=== PATIENT | male | born 1965 | race Caucasian/White ===

== ENCOUNTER 2025-07-27 03:05 | Emergency (ER) | payer OTHER, SELFPAY ==
[2025-07-27] VITALS (51 sets, daily range): BP systolic 104–221; BP diastolic 82–122; PULSE 71–99; RESP 15–24; TEMP 36.4; O2SAT 93–100
--- NOTE | ~2025-07-27 | XR_ITS ---
Examination: XR chest 1V portable Clinical History: LEFT SIDE CP Comparison: None Technique: Portable AP Findings: Heart size normal. Mild emphysema and hyperinflation. Mild asymmetrical markings right lung likely soft tissue artifact. No acute bony abnormality. IMPRESSION: 1. No definite acute cardiopulmonary findings given portable technique. Reviewed, dictated and finalized at location R. L CLEANER TUBE
--- NOTE | ~2025-07-27 | CT_ITS ---
EXAMINATION: CTA chest PE protocol DATE: 07/27/2025 04:06 INDICATION: Chest pain. TECHNIQUE: Computed tomography angiography (CTA) of the chest was performed with 100 mL Omnipaque-350 intravenous contrast timed to evaluate the pulmonary arteries. Coronal maximum intensity projection 3D-reconstructions were created by the technologist. Automated exposure control and iterative reconstruction technique were employed. The dose-length product was 229.71 mGy-cm. COMPARISON: None. FINDINGS: There is mild emphysema. There is mild atelectasis bilaterally. A calcified left lung nodule and calcified left hilar lymph nodes are consistent with old granulomatous disease. No pleural effusion. The heart size is normal. No pericardial effusion. There is an intramural hematoma of aorta distal to the arch vessels with maximum thickness of 2.4 cm. There is no pulmonary embolus. There is severe cervical spondylosis and mild thoracic spondylosis. There is mild chronic height loss of multiple vertebral bodies. IMPRESSION: 1. Intramural hematoma of the aorta distal to the arch vessels. 2. No pulmonary embolus. 3. Mild emphysema. Reviewed, dictated and finalized at location E. WIRER
--- NOTE | 2025-07-27 03:06 | ECG_ITS ---
Test Date: 2025-07-27 03:10:35 Measurements Intervals [place] Rate: 82 P: 42 MT: 132 QRS: 59 QRSD: 89 T: 91 QT: 370 QTc: 434 Interpretive Statements SINUS RHYTHM NONSPECIFIC T-WAVE ABNORMALITIES No previous ECG available for comparison Electronically Signed On 07-27-2025 08:37:07 OIL WELL PERFORATOR OPERATOR by Alex Razo M.D.
--- NOTE | 2025-07-27 03:06 | ED.CHESTPAIN ---
HPI - Chest Pain General Chief Complaint: Chest Pain Stated Complaint: chest pain Time Seen by Provider: 07/27/25 03:06 Source: patient Mode of arrival: ambulatory Limitations: no limitations History of Present Illness HPI narrative: Patient is a 59-year-old male with chest pain starting yesterday that radiated to his left arm with tingling and numbness and to his back. That went away somewhat during the day and now he laid down for bed last night and the pain came back in a similar fashion. Patient has baseline shortness of breath and edema and those are not worse than normal. He has history of asthma which is not a bother at this time according to the patient. Family history is showing his father had CHF and and mother had a stroke. EMS brought the patient to the ER with hypertensive urgency and abnormal EKG but not STEMI. Chest pain is right over the left chest. Pain got better after giving labetalol. MD complaint: chest pain Pertinent past history: asthma and other (Hypertension) Onset (ago): day(s) (2) Timing of current episode: episodic, daily and still present Prior episodes: No Onset: during rest Pain location: substernal and left chest Pain radiation: left arm and back Severity: moderate Pain scale (0-10): 5 Quality: heaviness Relieving factors: other (Labetalol made it get better given in the emergency room) Exacerbating factors: nothing Context: non compliance with medication (Patient has been on a beta-namrata but he had stop that medicine on his own device/noncompliance) Associated symptoms: dyspnea (Baseline) and leg swelling (Baseline) Treatment prior to arrival: aspirin (324 mg given by EMS) Risk Factors Coronary artery disease risk factors: smoking history and hypertension Thoracic aortic dissection risk factors: longstanding hypertension Related Data Allergies Allergy/AdvReac Type Severity Reaction Status Date / Time tramadol Allergy Intermediate Unknown Verified 07/27/25 03:25 Review of Systems Review of Systems: All systems reviewed & are unremarkable except as noted in HPI and below Constitutional: Constitutional: Reports no additional constitutional complaints Eyes: Eyes: Reports no additional eye complaints ENT: Reports system reviewed and no additional complaints, except as documented Cardiovascular: Cardiovascular: Reports no additional cardiovascular complaints Respiratory: Respiratory: Reports no additional respiratory complaints Gastrointestinal: Gastrointestinal: Reports no additional gastrointestinal complaints Genitourinary: Genitourinary: Reports no additional male genitourinary complaints Musculoskeletal: Musculoskeletal: Reports no additional musculoskeletal complaints Integumentary/Breasts: Skin/Breast: Reports system reviewed and no additional complaints, except as docu Neurologic: Reports system reviewed and no additional complaints, except as documented Psychiatric: Psychiatric: Reports no additional psychiatric complaints Endocrine: Endocrine: Reports no additional endocrine complaints Hematologic/Lymphatic: Hematologic/Lymphatic: Reports no additional hematologic/lymphatic complaints Allergic/Immunologic: Allergic/Immunologic: Reports no additional allergic/immunologic complaints [facility] Past Medical History Medical History (Updated 07/27/25 @ 05:22 by Winston Fagan MD) Nicotine dependence Hypertension Asthma Surgical History Surgical History No history of previous surgery Family History Family History Sister Hypertension Father Hypertension Mother Family history of chronic obstructive pulmonary disease Hypertension Social History Social History Smoking packs per day: 1 Smoking cigarettes per day: 20.0 Smoking status: Current every day smoker Tobacco type: cigarettes Alcohol intake: never Substance use: never Substance use type: does not use Living arrangements: with family Additional living arrangements comments: Single Occupation/Education: unemployed Exam Const: General: no acute distress Nutritional Appearance: well nourished Orientation/consciousness: patient oriented x3 Limitations: no limitations HENMT: Head: normal to inspection Ears: external ears normal Face/Nose/Sinus: Normal external nose present Eyes: Conjunctivae: conjunctivae normal Pupils: Equal, round and reactive pupils present EOM: EOMs intact bilaterally Neck: Neck: normal visual inspection Chest: Chest palpation & inspection: normal inspection of the chest Resp: Effort & Inspection: normal respiratory effort and not labored Auscultation: clear to auscultation bilaterally and no crackles Cardio: Rate: regular rate Rhythm: regular rhythm Heart sounds: no murmurs GI: Inspection: non-distended GI Palp: Yes Soft to palpation and No Tenderness to palpation present (GI) Auscultation: normal bowel sounds : General: Yes bladder normal to palpation Back/Spine/Pelvis: Back: no CVA tenderness Skin: General skin exam: normal color Rashes: no rashes Wounds: no wounds Neuro: General: patient oriented x3, moves all extremities and no meningeal signs Extrem: General: normal to inspection, no clubbing, cyanosis or edema and no pedal edema Psych: Mental Status: mental status grossly normal Affect: normal affect Attitude: cooperative Course Vital Signs Vital signs: Vital Signs Pulse Rate 96 07/27/25 03:09 Blood Pressure 221/122 H 07/27/25 03:09 Pulse Oximetry 100 07/27/25 03:09 Oxygen Delivery Room Air 07/27/25 03:09 Temperature 36.4 C L 07/27/25 03:27 Pulse Rate 80 07/27/25 05:08 Respiratory Rate 20 07/27/25 03:46 Blood Pressure 167/119 H 07/27/25 05:08 Pulse Oximetry 99 07/27/25 04:46 Oxygen Delivery Room Air 07/27/25 03:27 MDM - Chest Pain MDM Narrative Medical decision making narrative: Patient is a 59-year-old male with chest pain that started yesterday and it is episodic. We will do a cardiopulmonary workup at this time. Lab Data Attestation: I reviewed the patient's lab results. 07/27/25 03:15 07/27/25 03:15 Labs: Lab Results 07/27/25 Range/Units 03:15 WBC 9.8 (4.8-10.8) K/mm3 RBC 4.27 L (4.70-6.10) M/mm3 Hgb 13.7 L (14.0-18.0) g/dL Hct 41.4 (40.0-54.0) % MCV 97.0 (78.0-102.0) fL MCH 32.1 H (27.0-31.0) pg MCHC 33.1 (32-36) g/dL RDW 13.5 (11.6-14.4) % Plt Count 178 (150-420) K/mm3 MPV 10.3 (8.7-11.0) fl Immature Gran % (Auto) 0.3 H (0.0-0.0) % Neut % (Auto) 58.3 (50.0-70.0) % Lymph % (Auto) 18.5 (18.0-42.0) % Mcmullen % (Auto) 14.7 H (2.0-11.0) % Eos % (Auto) 7.3 H (1.0-6.0) % Baso % (Auto) 0.9 (0.0-1.0) % Lymph # (Auto) 1.82 (1.10-4.50) K/mm3 Mcmullen # (Auto) 1.44 H (0.10-0.90) K/mm3 Eos # (Auto) 0.72 H (0.02-0.50) K/mm3 Baso # (Auto) 0.09 (0.00-0.10) K/mm3 Abs Immat Gran (auto) 0.03 H (0.00-0.00) K/mm3 Absolute Neuts (auto) 5.72 (1.70-7.20) K/mm3 Absolute Nucleated RBC 0.00 (0.00-0.00) K/mm3 Nucleated RBC % 0.0 (0-0.0) % PT 10.0 (9.50-12.1) Seconds INR 0.9 APTT 27.4 (23.9-30.70) Sec D-Dimer 1.16 H (0.19-0.50) mg/L Sodium 144 (137-145) mmol/L Potassium 4.1 (3.4-5.0) mmol/L Chloride 107 (98-107) mmol/L Carbon Dioxide 31 H (22-30) mmol/L Anion Gap 6 (4-12) mmol/L BUN 19 (9-20) mg/dL Creatinine 1.56 H (0.7-1.3) mg/dL Estim Creat Clear Calc 45 ml/min Estimated GFR 46 L (59 - ) Glucose 94 (65-110) mg/dL Calculated Osmolality 300 H (285-295) mOsm/kg Lactic Acid 0.8 (0.7-2.0) mmol/L Calcium 9.1 (8.4-10.2) mg/dL Total Bilirubin 0.2 (0.2-1.3) mg/dL AST 31 (17-59) U/L ALT 18 (6-50) U/L Alkaline Phosphatase 112 (38-126) U/L Troponin I < 0.012 (0.000-0.034) ng/mL NT-Pro-B Natriuret Pep 685 H (19.9-100) pg/mL Total Protein 6.9 (6.3-8.2) g/dL Albumin 4.1 (3.5-5.1) g/dL Lipase 77 (23-300) U/L Procalcitonin 0.1 ng/mL Imaging Data Attestation: I personally reviewed and interpreted this imaging study as follows: Radiologist's impression: Chest x-ray shows right lower lobe subtle infection of atypical bacteria and a normal appearing thoracic aorta CTA of the chest shows 2.4 cm thick intramural hematoma of the descending aortic arch with increased density concerning for acute component and a mass effect on the left subclavian artery ECG Data EKG #1: Attestation: I personally reviewed and interpreted this ECG as follows: ECG completion date: 07/27/25 ECG completion time: 03:50 Prior ECG tracings: available for review (No acute changes from prior EKGs) Interpretation: Criteria for LVH seen EKG Interpretation: normal rate, sinus rhythm, no ectopy, non-specific ST changes, normal QRS, normal QT and NL axis EKG #2: Attestation: I personally reviewed and interpreted this ECG as follows: ECG completion date: 07/27/25 ECG completion time: 03:53 Prior ECG tracings: available for review (No acute changes from prior EKGs) Interpretation: LVH pattern EKG Interpretation: normal rate, sinus rhythm, no ectopy, non-specific ST changes, normal QRS, normal QT and NL axis Critical Care Time Critical Care Time Critical Care Time: Yes Total Critical Care Time: 60 Discharge Plan Discharge Clinical Impression: Aortic dissection Qualifiers: Aortic location: thoracic aorta Thoracic aorta location: aortic arch Qualified Code(s): I71.011 - Dissection of aortic arch Patient Disposition: Acute Care Hospital Condition: Serious Patient Language: Maltese Prescriptions: No Action albuterol sulfate [Ventolin HFA] 90 mcg/actuation HFA aerosol inhaler 1 puff INHALATION Q4H PRN (Reason: shortness of breath or wheezing) Qty: 8.5 6RF lisinopril-hydrochlorothiazide 20-25 mg tablet 1 tablet PO DAILY Qty: 30 0RF metoprolol tartrate 50 mg tablet 50 mg PO Q12H Qty: 60 0RF Rx Instructions: Needs appt before next refill Follow-up/Referrals: Kb Gonsalez MD [Primary Care Provider, Internal Medicine] Time of Disposition: 05:22
--- NOTE | 2025-07-27 03:18 | ECG_ITS ---
Test Date: 2025-07-27 03:20:13 Measurements Intervals [place] Rate: 86 P: 24 LA: 134 QRS: 57 QRSD: 87 T: 86 QT: 373 QTc: 446 Interpretive Statements SINUS RHYTHM NONSPECIFIC T-WAVE ABNORMALITY Compared to ECG 07/27/2025 03:10:35 NO SIGNIFICANT CHANGES Electronically Signed On 07-27-2025 08:37:31 TRENCH PIPE LAYER HELPER by Alex Razo M.D.
[2025-07-27 03:30] LABS: Hematocrit 41.4 % (40.0-54.0); Hemoglobin 13.7 g/dL (14.0-18.0); Immature Granulocyte Percent A 0.3 % (0.0-0.0); Lymphocytes Absolute Auto 1.82 K/mm3 (1.10-4.50); Mean Corpuscular HGB Conc 33.1 g/dL (32-36); Mean Corpuscular Hemoglobin 32.1 pg (27.0-31.0); Mean Corpuscular Volume 97.0 fL (78.0-102.0); Nucleated Red Blood Cells Absolute Auto 0.00 K/mm3 (0.00-0.00); Nucleated Red Blood Cells Perc 0.0 % (0-0.0); Platelet Count Result 178 K/mm3 (150-420); Red Blood Count 4.27 M/mm3 (4.70-6.10); White Blood Count 9.8 K/mm3 (4.8-10.8)
[2025-07-27 03:32] LABS: Alanine Aminotransferase 18 U/L (6-50); Albumin Level 4.1 g/dL (3.5-5.1); Alkaline Phosphatase 112 U/L (38-126); Anion Gap 6 mmol/L (4-12); Aspartate Amino Transferase 31 U/L (17-59); Bilirubin,Total 0.2 mg/dL (0.2-1.3); Blood Urea Nitrogen 19 mg/dL (9-20); Calcium 9.1 mg/dL (8.4-10.2); Carbon Dioxide 31 mmol/L (22-30); Chloride 107 mmol/L (98-107); Estimated CRCL calculation 45 ml/min; Estimated Glomerular Filt Rate 46; Glucose 94 mg/dL (65-110); Osmolality Calculated 300 mOsm/kg (285-295); Potassium 4.1 mmol/L (3.4-5.0); Sodium 144 mmol/L (137-145); Total Protein 6.9 g/dL (6.3-8.2)
[2025-07-27 03:37] LABS: INR 0.9; Partial Thromboplastin Time 27.4 Sec (23.9-30.70); Prothrombin Time 10.0 Seconds (9.50-12.1)
[2025-07-27 03:40] LABS: Lipase 77 U/L (23-300)
[2025-07-27 03:45] LABS: NT Pro B Type Natriuretic Pept 685 pg/mL (19.9-100); Troponin I < 0.012 ng/mL (0.000-0.034)
[2025-07-27 04:17] LABS: Procalcitonin 0.1 ng/mL
[2025-07-27] MEDS: HYDROmorphone HCL INJ (*CRX) 2 MG/ML VIAL 1 MG IV PUSH (06:11)
--- NOTE | 2025-07-27 06:26 | PC.NURSE ---
pt placed on 2 lpm nasal cannula at this time as O2 sat's decreased to 94% on RA as patient medicated for pain, see MAR.
--- NOTE | 2025-07-30 13:12 | PC.NURSE ---
PRELIMINARY BLOOD CULTURE; NO GROWTH IN 24 HOURS.
--- NOTE | 2025-07-31 12:58 | PC.NURSE ---
preliminary blood cultures x2 reviewed. no growth in 48 hours
--- NOTE | 2025-08-03 14:21 | PC.NURSE ---
blood culture, final, no growth
== END 2025-07-27 06:58 | disposition short-term general hospital (02) ==
PROVIDERS: Emergency Provider Emergency Medicine; PCP Family Medicine
DX: I71.011 Dissection of aortic arch (principal); I10 Essential (primary) hypertension; F17.210 Nicotine dependence, cigarettes, uncomplicated
CPT/HCPCS: 36415; 71045; 71275; 80053; 83605; 83690; 83880; 84145; 84484; 85025; 85380; 85610; 85730; 93005; 96365; 96375; 96376; 99291; J1171; J7060; Q9967

== ENCOUNTER 2025-08-17 13:46 | Outpatient (CLI) | payer OTHER, SELFPAY ==
--- NOTE | ~2025-08-17 | US_ITS ---
EXAMINATION: US renal BI, 08/17/2025 13:52 CASTING CARRIER HISTORY: N28.9 - Disorder of kidney and ureter, unspecified Comparison: None Technique: Jaffe-scale and color Doppler images were obtained. Findings: KIDNEYS: The renal cortices are intact with no solid masses or calculi, no hydronephrosis. Right Kidney: Right kidney 10.3 x 6.2 x 5.1 cm, superior pole simple cyst 1.8 x 1.8 cm. Left Kidney: Left kidney 10.5 x 4.8 x 5.4 cm, mid pole simple cyst 1.6 x 1.7 cm. Bladder: There is debris noted within the bladder, no gross bladder wall thickening. . Impression: 1. Bilateral simple appearing renal cysts. 2. Correlate for underlying cystitis Reviewed, dictated and finalized at location P. ING CARRIER Impression: 1. Bilateral simple appearing renal cysts. 2. Correlate for underlying cystitis
== END 2025-08-17 13:47 | disposition home or self-care (01) ==
PROVIDERS: PCP Nurse Practitioner Family; Visit Provider Nurse Practitioner Family
DX: N28.9 Disorder of kidney and ureter, unspecified (principal); N32.89 Other specified disorders of bladder; N28.1 Cyst of kidney, acquired
CPT/HCPCS: 76770

== ENCOUNTER 2025-08-21 15:52 | Outpatient (NON) | payer OTHER, SELFPAY ==
[2025-08-21 16:15] LABS: Add Urine Microscopic? YES; Appearance Urine Clear (Clear); Glucose Urine UA Negative (Negative); Leukocyte Esterase Ur 2+ LEU/UL (Negative); Nitrate Urine Positive (Negative); Specific Grav Ur 1.020 (1.010-1.020)
--- OUTSIDE RECORDS SUMMARY | 2025-08-21 18:05 | XMS_ITS | Clinical Summary ---
Author Organization [facility] Address [facility] [place] [address] Care Team Providers Care Crm Marketing Analyst Name Role Phone Michelle Lopez [facility] Primary Care Provider [phone] Allergies No known active allergies Medications lisinopril (PRINIVIL) 10 MG tablet Take 1 tablet (10 mg total) by mouth daily. Active losartan (COZAAR) 25 MG tablet Take 4 tablets (100 mg total) by mouth daily for 30 days. 30 tablet 07/29/2025 5 Active carvedilol (COREG) 3.125 MG tablet Take 16 tablets (50 mg total) by mouth 2 (two) times daily for 30 days. 960 tablet 07/29/2025 5 Active amLODIPine (NORVASC) 2.5 MG tablet Take 4 tablets (10 mg total) by mouth daily. 30 tablet 07/29/2025 Active Active Problems Problem Noted Date Diagnosed Date Aortic dissection 07/27/2025 Encounters Date Type Department Care Team Description 08/07/2025 Orders Only [facility] [address] [place] [address] Jonn Valle MD 07/27/2025 7:56 AM SEARCH ENGINE OPTIMIZATION STRATEGIST - 07/29/2025 11:30 AM [facility] Hospital Encounter [facility] Cardiovascular ICU [address] [place] [address] Neri Higgins MD Subramaniyam, Rajamurugan R, MD Discharge Disposition: Home or Self Care (Routine Discharge) 07/27/2025 Travel from Last 3 Months Social History Tobacco Use Types Packs/Day Years Used Date Smoking Tobacco: Every Day Cigarettes Started: 1979 Smokeless Tobacco: Never Tobacco Cessation:Ready to Q uit: Not Asked; Counseling Given: Not Answered Humiliation, Afraid, Rape, and Kick questionnair e Answer Date Recorded Within the last year, have y ou been afraid of your partner or ex-partner? No 07/27/2025 Within the last year, have y ou been humiliated or emotionally abused in other ways by your partner or ex-partner? No Within the last year, have y ou been kicked, hit, slapped, or otherwise physically hurt by your partner or ex-partner? No 07/27/2025 Within the last year, have y ou been raped or forced to have any kind of sexual activity by your partner or ex-partner? No 07/27/2025 Overall Financial Resource Strain (CARDIA) Answe r Date Recorded How hard is it for you to pa y for the very basics like food, housing, medical care, and heating? Not hard at all 07/27/2025 Hunger Vital Sign Answer Date Recorded Within the past 12 months, y ou worried that your food would run out before you got the money to buy more. Never true 07/27/20 25 Within the past 12 months, t he food you bought just didn't last and you didn't have money to get more. Never true 07/27/2025 PRAPARE - Transportation Answer Date Re corded In the past 12 months, has l ack of transportation kept you from medical appointments or from getting medications? Yes 07/09 In the past 12 months, has l ack of transportation kept you from meetings, work, or from getting things needed for daily living? No 07/27/2025 Housing Stability Vital Sign Answer Tito e Recorded In the last 12 months, was t here a time when you were not able to pay the mortgage or rent on time? No 07/27/2025 In the past 12 months, how m any times have you moved where you were living? 0 07/27/2025 At any time in the past 12 m [facility], were you homeless or living in a alf (including now)? No 07/27/2025 [facility] Utilities Answer Date Recorded In the past 12 months has th e [employer], gas, oil, or water [employer] threatened to shut off services in your home? No 07/27/2025 Sex and Gender Information Value Date Recorded Sex Assigned at Male 07/28/2025 7:35 AM SEARCH ENGINE OPTIMIZATION STRATEGIST Legal Sex Male 8:55 PM CDT Gender Identity Male 07/28/2025 7:35 AM SEARCH ENGINE OPTIMIZATION STRATEGIST Sexual Orientation Straight 07/28/2025 7: 35 AM SEARCH ENGINE OPTIMIZATION STRATEGIST Last Filed Vital Signs Vital Sign Reading Time Taken Comments Blood Pressure 144/97 07/29/2025 11:00 AM SEARCH ENGINE OPTIMIZATION STRATEGIST Pulse 74 07/29/2025 11:05 AM SEARCH ENGINE OPTIMIZATION STRATEGIST Temperature 36.7 C (98.1 F) 07/29/2025 8:00 AM SEARCH ENGINE OPTIMIZATION STRATEGIST Respiratory Rate 20 07/29/2025 11:00 AM SEARCH ENGINE OPTIMIZATION STRATEGIST Oxygen Saturation 96% 07/29/2025 10:00 AM SEARCH ENGINE OPTIMIZATION STRATEGIST Inhaled Oxygen Concentration - - Weight 77.2 kg (170 lb 3.1 oz) 07/27/2025 7:00 A M SEARCH ENGINE OPTIMIZATION STRATEGIST Height 172.7 cm (5' 8) 07/27/2025 7:00 AM SEARCH ENGINE OPTIMIZATION STRATEGIST Body Mass Index 25.88 07/27/2025 7:00 AM SEARCH ENGINE OPTIMIZATION STRATEGIST Plan of Treatment Upcoming Encounters Date Type Department Care Team (Late st Contact Info) Description 08/25/2025 1:00 PM SEARCH ENGINE OPTIMIZATION STRATEGIST Appointment [facility] [address] [place] [address] Jonn Valle MD [address] [address] Health Maintenance Due Date Last Done Comments Colorectal Cancer Screening Colonoscopy (10 Years) 1966 Annual Physical 1969 Hepatitis C 1984 DTaP, Tdap and Td Vaccines ( 1 - Tdap) 1985 Hepatitis B Vaccines (1 of 3 - 19+ 3-dose series) 1985 Zoster Vaccines (1 of 2) 2016 Pneumococcal Vaccine: 50+ Ye ars (2 of 2 - PCV) 10/08/2019 10/08/2018 COVID-19 Vaccine (1 - 2024-2 6 season) 2025 Influenza Adult (#1) 2025 10/08/2018 Hepatitis A Vaccines Aged Out No long er eligible based on patient's age to complete this topic Meningococcal B Vaccine Aged Out No l onger eligible based on patient's age to complete this topic Meningococcal Vaccine Aged Out No hi denis eligible based on patient's age to complete this topic RSV Immunizations Under 20 Months Aged Out No longer eligible based on patient's age to complete this topic Procedures Procedure Name Priority Date/Time Associated Diagnosis Comments POCT GLUCOSE - DOCKED DEVICE Routine 07/29/2025 11:22 AM SEARCH ENGINE OPTIMIZATION STRATEGIST CTA CHEST+ABD+PEL Today 07/29/2025 9:1 3 AM SEARCH ENGINE OPTIMIZATION STRATEGIST POCT GLUCOSE - DOCKED DEVICE Routine 07/29/2025 6:36 AM SEARCH ENGINE OPTIMIZATION STRATEGIST HEPATIC FUNCTION PANEL Routine 07/29/2025 4:30 AM SEARCH ENGINE OPTIMIZATION STRATEGIST PHOSPHORUS, INORGANIC PHOSPHATE Routine 07/29/2025 4:30 AM SEARCH ENGINE OPTIMIZATION STRATEGIST MAGNESIUM Routine 07/29/2025 4:30 AM SEARCH ENGINE OPTIMIZATION STRATEGIST BASIC METABOLIC PANEL Routine 07/29/2025 4:30 AM SEARCH ENGINE OPTIMIZATION STRATEGIST HC CBC W/O DIFF Routine 07/29/2025 4:30 AM SEARCH ENGINE OPTIMIZATION STRATEGIST POCT GLUCOSE - DOCKED DEVICE Routine 07/28/2025 7:48 PM SEARCH ENGINE OPTIMIZATION STRATEGIST POCT GLUCOSE - DOCKED DEVICE Routine 07/28/2025 3:31 PM SEARCH ENGINE OPTIMIZATION STRATEGIST URINE BACTERIA CULTURE Nurse Collected Priority 07/28/2025 12:50 PM SEARCH ENGINE OPTIMIZATION STRATEGIST URINALYSIS Nurse Collected Priority 07/28/2025 12:50 PM SEARCH ENGINE OPTIMIZATION STRATEGIST POCT GLUCOSE - DOCKED DEVICE Routine 07/28/2025 11:17 AM SEARCH ENGINE OPTIMIZATION STRATEGIST POCT GLUCOSE - DOCKED DEVICE Routine 07/28/2025 5:33 AM SEARCH ENGINE OPTIMIZATION STRATEGIST HEPATIC FUNCTION PANEL Routine 07/28/2025 4:00 AM SEARCH ENGINE OPTIMIZATION STRATEGIST PHOSPHORUS, INORGANIC PHOSPHATE Routine 07/28/2025 4:00 AM SEARCH ENGINE OPTIMIZATION STRATEGIST MAGNESIUM Routine 07/28/2025 4:00 AM SEARCH ENGINE OPTIMIZATION STRATEGIST BASIC METABOLIC PANEL Routine 07/28/2025 4:00 AM SEARCH ENGINE OPTIMIZATION STRATEGIST HC CBC W/O DIFF Routine 07/28/2025 4:00 AM SEARCH ENGINE OPTIMIZATION STRATEGIST POCT GLUCOSE - DOCKED DEVICE Routine 07/27/2025 8:33 PM SEARCH ENGINE OPTIMIZATION STRATEGIST POCT GLUCOSE - DOCKED DEVICE Routine 07/27/2025 5:23 PM SEARCH ENGINE OPTIMIZATION STRATEGIST USE ECHOCARDIOGRAM Routine 07/27/2025 12 :01 PM SEARCH ENGINE OPTIMIZATION STRATEGIST POCT GLUCOSE - DOCKED DEVICE Routine 07/27/2025 11:07 AM SEARCH ENGINE OPTIMIZATION STRATEGIST ECG 12-LEAD Routine 07/27/2025 8:58 AM SEARCH ENGINE OPTIMIZATION STRATEGIST POCT ACUTE VENOUS PANEL Routine 07/27/2025 8:28 AM SEARCH ENGINE OPTIMIZATION STRATEGIST MRSA PCR Nurse Collected Priority 07/27/2025 8:25 AM SEARCH ENGINE OPTIMIZATION STRATEGIST PROTHROMBIN TIME, VENOUS Routine 07/27/2025 8:25 AM SEARCH ENGINE OPTIMIZATION STRATEGIST HC CBC AUTO W/AUTO DIFF STAT 07/27/2025 8:25 AM SEARCH ENGINE OPTIMIZATION STRATEGIST THYROID STIM HORMONE TSH Routine 07/27/2025 8:25 AM SEARCH ENGINE OPTIMIZATION STRATEGIST PHOSPHORUS, INORGANIC PHOSPHATE STAT 07/27/2025 8:25 AM SEARCH ENGINE OPTIMIZATION STRATEGIST LACTIC ACID Routine 07/27/2025 8:25 AM SEARCH ENGINE OPTIMIZATION STRATEGIST MAGNESIUM STAT 07/27/2025 8:25 AM SEARCH ENGINE OPTIMIZATION STRATEGIST TROPONIN, QUANT Routine 07/27/2025 8:25 AM SEARCH ENGINE OPTIMIZATION STRATEGIST COMPREHENSIVE METABOLIC PANEL STAT 07/27/2025 8:25 AM SEARCH ENGINE OPTIMIZATION STRATEGIST HEMOGLOBIN, GLYCOSYLATED Routine 07/27/2025 8:25 AM SEARCH ENGINE OPTIMIZATION STRATEGIST LIPID PANEL Routine 07/27/2025 8:25 AM SEARCH ENGINE OPTIMIZATION STRATEGIST PRO-BRAIN NATRIURETIC PEPTIDE STAT 07/27/2025 8:25 AM SEARCH ENGINE OPTIMIZATION STRATEGIST XR CHEST PORTABLE STAT 07/27/2025 8:2 2 AM SEARCH ENGINE OPTIMIZATION STRATEGIST from Last 3 Months Results * (ABNORMAL) POCT glucose (07/29/2025 11:22 AM SEARCH ENGINE OPTIMIZATION STRATEGIST) Only the most recent of9 resultswithin the time period is included. GLUCOSE POC 112(H) 70 - 109 07/29/2025 11:30 AM SEARCH ENGINE OPTIMIZATION STRATEGIST [facility] 07/29/2025 11:2 2 AM SEARCH ENGINE OPTIMIZATION STRATEGIST Rolo Beltran MD POCT ORDERABLES - DEVICE Final Result Performing Organization Address City/State/[facility] Co de Phone Number [facility] [address] [place] [address], [place] [phone] [id number] * CTA CHEST+ABD+PEL (07/29/2025 9:13 AM SEARCH ENGINE OPTIMIZATION STRATEGIST) Anatomical Region Laterality Modality Chest, Abdomen, Pelvis Computed Tomography 07/29/2025 10:0 4 AM SEARCH ENGINE OPTIMIZATION STRATEGIST Addenda Addendum by Lee Solis MD on 07/29/2025 11:05 AM SEARCH ENGINE OPTIMIZATION STRATEGIST [facility] [address] [place] [address] Addendum: Notification of the dissection was given to Dr. Landers at 11:04 AM. Referred By: TYRONE NUÑEZ Interpreted By: Lee Solis MD, 07/29/2025 11:04 AM Impressions 07/29/2025 10:22 AM SEARCH ENGINE OPTIMIZATION STRATEGIST IMPRESSION: There is a dissection of the arch of the aorta. This originates posterior to the LEFT subclavian artery. This extends in anterior posterior dimension of approximately 6.2 cm. Connection of the true and false lumen can be seen on sagittal image #68 and coronal image #42 through 44 as discussed above. Graph emphysematous changes of the lungs bilaterally. Hypoattenuating LEFT renal lesion. Elective ultrasound recommended. Urinary bladder wall thickening is present on the RIGHT. This could relate subjacent compression. Correlation with urinalysis is recommended. Follow-up bladder ultrasound is recommended with the bladder distended. Small amount of ascites within the abdomen. Moderate LEFT effusion. Lower lung atelectasis. Referred By: TYRONE NUÑEZ Interpreted By: Lee Solis MD, 07/29/2025 10:04 AM Narrative 07/29/2025 10:22 AM SEARCH ENGINE OPTIMIZATION STRATEGIST [place] [address] Procedure(s): CTA CHEST+ABD+PEL Date of service: 07/29/2025 9:09 AM Provided clinical information: 59 years, Male, aortic dissectionknown AAA. Procedure and materials: Helical images of the chest, abdomen and pelvis are obtained from superior to the thoracic inlet to inferior to the pubic symphysis. Examination is performed before and after intravenous contrast. 100 mL Isovue-370 utilized for contrast. Postprocessing was performed. 3-D MIP images obtained. A dose lowering technique was used for this procedure, which may include, but is not limited to, dose reduction technique, automated exposure control, iterative reconstruction, ALARA (As Low As Reasonably Achievable), or Image Gently techniques. Comparison studies: None. Findings: CT Chest: Axillae: No enlarged lymph nodes. Mediastinum and kathe: No enlarged mediastinal or hilar lymph nodes are present. Vasculature: No cardiomegaly. Anatomical variant of 2 vessel aortic arch. Distal to the takeoff of the LEFT subclavian artery there is an aortic dissection that is present involving the dorsal arch of the aorta. The connection of the true and false lumen is suggested on sagittal image 68 of 164. It is better seen on coronal reconstruction images 42 through 44 of 98. The dissection extends into the proximal descending aorta. The dissection extends in anterior posterior dimension of approximately 6.2 cm. Transverse dimension is approximately 3.8 cm in superior-inferior dimension measures approximately 2.4 cm. Lungs and pleura: Diffuse emphysematous changes are present involving the RIGHT and LEFT lung. Atelectasis is present in the lower lobes bilaterally. Moderate LEFT pleural effusion is present. Benign calcified granuloma LEFT lung image #95. CT abdomen and pelvis: Adrenals: Unremarkable. Spleen: No splenomegaly. Pancreas: Unremarkable. Liver: No hypervascular hepatic masses are present. Gallbladder/Biliary system: Unremarkable. Kidneys: Small hypoattenuating lesion LEFT kidney measuring approximately 25 Hounsfield on postcontrast study in 23 Hounsfield units on precontrast. This is most likely due to a proteinaceous or hemorrhagic cyst. Elective renal ultrasound. Aorta and Retroperitoneum: The celiac axis, superior mesenteric artery and renal arteries are patent. The inferior mesenteric artery is patent. The common iliac arteries are patent bilaterally. The external and internal iliac arteries are patent bilaterally. No abdominal aortic aneurysm. No enlarged retroperitoneal lymph nodes. Bowel: Large amount of gas is present in the rectal vault. There is a short segment narrowing that is present at the rectosigmoid junction. This may relate to peristalsis. Colonoscopy recommended for further evaluation if not recently performed. Diffuse gaseous prominence of the colon is present. The colon is not distended. Moderate amount of fecal material in the proximal colon. No small bowel distention is present. Pelvic organs: Mcgregor catheter in urinary bladder. Air in the urinary bladder likely related to the catheter placement. Bladder wall thickening is present on the RIGHT. This may relate to subadjacent bowel compressing the bladder wall. Correlation with urinalysis is recommended. Prostate is not enlarged. Free fluid: Minimal fluid is present in the perirenal tissues and paracolic gutter. Minimal ascites is present within the abdomen. Musculoskeletal: Degenerative changes are present greatest at L4-5 with diffuse disc bulge. Bilateral neural foraminal narrowing is present at L4-5. Procedure Note Lee Solis MD - 07/29/[address] [address] Procedure(s): CTA CHEST+ABD+PEL Date of service: 07/29/2025 9:09 AM Provided clinical information: 59 years, Male, aortic dissectionknownAAA. Procedure and materials: Helical images of the chest, abdomen and pelvisare obtained from superior to the thoracic inlet to inferior to the pubicsymphysis. Examination is performed before and after intravenous contrast.100 mL Isovue-370 utilized for contrast. Postprocessing was performed. 3-DMIP images obtained. A dose lowering technique was used for this procedure, which may include,but is not limited to, dose reduction technique, automated exposurecontrol, iterative reconstruction, ALARA (As Low As ReasonablyAchievable), or Image Gently techniques. Comparison studies: None. Findings: CT Chest: Axillae: No enlarged lymph nodes. Mediastinum and kathe: No enlarged mediastinal or hilar lymph nodes arepresent. Vasculature: No cardiomegaly. Anatomical variant of 2 vessel aorticarch. Distal to the takeoff of the LEFT subclavian artery there is an aorticdissection that is present involving the dorsal arch of the aorta. Theconnection of the true and false lumen is suggested on sagittal image 68of 164. It is better seen on coronal reconstruction images 42 through 44of 98. The dissection extends into the proximal descending aorta. The dissectionextends in anterior posterior dimension of approximately 6.2 cm.Transverse dimension is approximately 3.8 cm in superior-inferiordimension measures approximately 2.4 cm. Lungs and pleura: Diffuse emphysematous changes are present involving theRIGHT and LEFT lung. Atelectasis is present in the lower lobesbilaterally. Moderate LEFT pleural effusion is present. Benign calcifiedgranuloma LEFT lung image #95. CT abdomen and pelvis: Adrenals: Unremarkable. Spleen: No splenomegaly. Pancreas: Unremarkable. Liver: No hypervascular hepatic masses are present. Gallbladder/Biliary system: Unremarkable. Kidneys: Small hypoattenuating lesion LEFT kidney measuring [id number] Hounsfield on postcontrast study in 23 Hounsfield units on precontrast.This is most likely due to a proteinaceous or hemorrhagic cyst. Electiverenal ultrasound. Aorta and Retroperitoneum: The celiac axis, superior mesenteric artery andrenal arteries are patent. The inferior mesenteric artery is patent. Thecommon iliac arteries are patent bilaterally. The external and internaliliac arteries are patent bilaterally. No abdominal aortic aneurysm. Noenlarged retroperitoneal lymph nodes. Bowel: Large amount of gas is present in the rectal vault. There is ashort segment narrowing that is present at the rectosigmoid junction. Thismay relate to peristalsis. Colonoscopy recommended for further evaluationif not recently performed. Diffuse gaseous prominence of the colon ispresent. The colon is not distended. Moderate amount of fecal material inthe proximal colon. No small bowel distention is present. Pelvic organs: Mcgregor catheter in urinary bladder. Air in the urinarybladder likely related to the catheter placement. Bladder wall thickeningis present on the RIGHT. This may relate to subadjacent bowel compressingthe bladder wall. Correlation with urinalysis is recommended. Prostate isnot enlarged. Free fluid: Minimal fluid is present in the perirenal tissues andparacolic gutter. Minimal ascites is present within the abdomen. Musculoskeletal: Degenerative changes are present greatest at L4-5 withdiffuse disc bulge. Bilateral neural foraminal narrowing is present atL4-5. IMPRESSION: There is a dissection of the arch of the aorta. This originates posteriorto the LEFT subclavian artery. This extends in anterior posteriordimension of approximately 6.2 cm. Connection of the true and false lumencan be seen on sagittal image #68 and coronal image #42 through 44 asdiscussed above. Graph emphysematous changes of the lungs bilaterally. Hypoattenuating LEFT renal lesion. Elective ultrasound recommended. Urinary bladder wall thickening is present on the RIGHT. This could relatesubjacent compression. Correlation with urinalysis is recommended.Follow-up bladder ultrasound is recommended with the bladder distended. Small amount of ascites within the abdomen. Moderate LEFT effusion. Lower lung atelectasis. Referred By: TYRONE NUÑEZ Interpreted By: Lee Solis MD, 07/29/2025 10:04 AM Horace Landers MD CT Edited Result - Final * PHOSPHORUS, INORGANIC PHOSPHATE (07/29/2025 4:30 AM SEARCH ENGINE OPTIMIZATION STRATEGIST) Only the most recent of3 resultswithin the time period is included. PHOSPHORUS 2.9 2.5 - 4.9 MG/DL 07/29/2025 6:54 AM SEARCH ENGINE OPTIMIZATION STRATEGIST [facility] BLOOD VENOUS BLOOD SPECIMEN / Unknown 07/29/2025 4:30 AM SEARCH ENGINE OPTIMIZATION STRATEGIST Neri Higgins MD LABORATORY Final Result Performing Organization Address City/[facility] Co de Phone Number [facility] [address] [id number], [id number] * MAGNESIUM (07/29/2025 4:30 AM SEARCH ENGINE OPTIMIZATION STRATEGIST) Only the most recent of3 resultswithin the time period is included. Pathologist [facility] MAGNESIUM 1.8 1.6 - 2.6 MG/DL 07/29/2025 6:54 AM SEARCH ENGINE OPTIMIZATION STRATEGIST [facility] BLOOD VENOUS BLOOD SPECIMEN / Unknown 07/29/2025 4:30 AM SEARCH ENGINE OPTIMIZATION STRATEGIST Neri Higgins MD LABORATORY Final Result Performing Organization Address [facility]/[place]UST de Phone Number [facility] [address] [place] [address], [id number] * (ABNORMAL) HEPATIC FUNCTION PANEL (07/29/2025 4:30 AM SEARCH ENGINE OPTIMIZATION STRATEGIST) Only the most recent of2 resultswithin the time period is included. Pathologist [facility] BILIRUBIN TOTAL S/P/B 0.2 0.2 - 1.0 MG/DL 07/29/2025 6:54 AM SEARCH ENGINE OPTIMIZATION STRATEGIST [facility] BILIRUBIN DIRECT S/P/B <0.1 0.0 - 0.2 MG/DL 07/29/2025 6:54 AM SEARCH ENGINE OPTIMIZATION STRATEGIST [facility] ALKALINE PHOSPHATASE S/P/B 105 45 - 115 U/L 07/29/2025 6:54 AM SEARCH ENGINE OPTIMIZATION STRATEGIST [facility] AST 16 15 - 37 U/L 07/29/2025 6:54 AM SEARCH ENGINE OPTIMIZATION STRATEGIST [facility] ALT 16 16 - 61 U/L 07/29/2025 6:54 AM [facility] TOTAL PROTEIN S/P/B 5.6(L) 6.4 - 8.2 G/DL 07/29/2025 6:54 AM [facility] ALBUMIN S/P/B 2.4(L) 3.4 - 5.0 G/DL 07/29/2025 6:54 AM [facility] BLOOD VENOUS BLOOD SPECIMEN / Unknown 07/29/2025 4:30 AM SEARCH ENGINE OPTIMIZATION STRATEGIST Neri Higgins MD LABORATORY Final Result [facility] [address] [place] [address], [id number] * (ABNORMAL) CBC, AUTO, NO DIFF (07/29/2025 4:30 AM SEARCH ENGINE OPTIMIZATION STRATEGIST) Only the most recent of2 resultswithin the time period is included. WBC 10.90(H) 4.00 - 10.80 x10'3/uL 07/29/2025 5:19 AM [facility] RBC 4.11(L) 4.50 - 6.10 x10'6/uL 07/29/2025 5:19 AM [facility] HGB 13.2 13.0 - 18.0 G/DL 07/29/2025 5:19 AM [facility] HCT 38.8 37.0 - 52.0 % 07/29/2025 5:19 AM [facility] MCV 94.4 78.0 - 100.0 FL 07/29/2025 5:19 AM [facility] MCH 32.1(H) 27.0 - 31.0 PG 07/29/2025 5:19 AM [facility] MCHC 34.0 33.0 - 36.0 G/DL 07/29/2025 5:19 AM [facility] RDW 12.8 11.5 - 14.5 % 07/29/2025 5:19 AM [facility] PLT 185 150 - 350 x10'3/uL 07/29/2025 5:19 AM [facility] MPV 10.6(H) 7.4 - 10.4 FL 07/29/2025 5:19 AM [facility] BLOOD VENOUS BLOOD SPECIMEN / Unknown 07/29/2025 4:30 AM SEARCH ENGINE OPTIMIZATION STRATEGIST Neri Higgins MD LABORATORY Final Result [facility] [address] [place] [address], [id number] * (ABNORMAL) BASIC METABOLIC PANEL (07/29/2025 4:30 AM SEARCH ENGINE OPTIMIZATION STRATEGIST) Only the most recent of2 resultswithin the time period is included. SODIUM S/P/B 139 136 - 145 MMOL/L 07/29/2025 6:54 AM [facility] POTASSIUM S/P/B 3.8 3.5 - 5.1 MMOL/L 07/29/2025 6:54 AM [facility] CHLORIDE S/P/B 110 97 - 115 MMOL/L 07/29/2025 6:54 AM [facility] CO2 23.6 21.0 - 32.0 MMOL/L 07/29/2025 6:54 AM [facility] GLUCOSE 109(H) 74 - 106 MG/DL 07/29/2025 6:54 AM [facility] BUN 17 7 - 18 MG/DL 07/29/2025 6:54 AM [facility] CREATININE S/P/B 1.11 0.70 - 1.30 MG/DL 07/29/2025 6:54 AM [facility] CALCIUM S/P/B 8.5 8.5 - 10.1 MG/DL 07/29/2025 6:54 AM SEARCH ENGINE OPTIMIZATION STRATEGIST [facility] ANION GAP 5.4 2.0 - 10.0 MMOL/L 07/29/2025 6:54 AM [facility] OSMOLALITY (CALC) 290 MOSM/KG 6:54 AM [facility] Comment:REFERENCE RANGE NOT ESTABLISHED GFR ESTIMATE 77(L) >90 ML/MIN/1. 73 M2 07/29/2025 6:54 AM [facility] GFR NOTES GFR REFERENCE S: 07/29/2025 6:54 AM [facility] Comment: THE ESTIMATED GFR IS CALCULATED USING THE 2020 CKD-EPI EQUATION. THE FOLLOWING CATEGORIES FOR GRADING RENAL FUNCTION ARE RECOMMENDED BY THE INTERNATIONAL SOCIETY OF NEPHROLOGY (KDIGO 2012 CLINICAL PRACTICE GUIDELINE). G1,NORMAL OR HIGH: >89 ml/min/1.73 m2 G2,MILDLY DECREASED: 60-89 ml/min/1.73 m2 G3A,MILDLY TO MODERATELY DECREASED: 45-59 ml/min/1.73 m2 G3B,MODERATELY TO SEVERELY DECREASED: 30-44 ml/min/1.73 m2 G4,SEVERELY DECREASED: 15-29 ml/min/1.73 m2 G5,KIDNEY FAILURE: <15 ml/min/1.73 m2 BLOOD VENOUS BLOOD SPECIMEN / Unknown 07/29/2025 4:30 AM SEARCH ENGINE OPTIMIZATION STRATEGIST us Neri Higgins MD LABORATORY Final Result [facility] [address] [place] [address], [phone] * URINE BACTERIA CULTURE (07/28/2025 12:50 PM SEARCH ENGINE OPTIMIZATION STRATEGIST) SPEC DESCRIPTION URINE MCGREGOR CATH 07/28/2025 12:49 PM SEARCH ENGINE OPTIMIZATION STRATEGIST [facility] SPECIAL REQUESTS NO SPECIAL REQUEST 07/28/2025 12:49 PM SEARCH ENGINE OPTIMIZATION STRATEGIST [facility] CULTURE RESULT NO GROWTH (< OR = 1,000 CFU/ML) 07/30/2025 7:27 AM SEARCH ENGINE OPTIMIZATION STRATEGIST [facility] URINE URINE SPECIMEN OBTAINED VIA INDWELLING URINARY CATHETER / Unknown 07/28/2025 12:50 PM SEARCH ENGINE OPTIMIZATION STRATEGIST 07/28/2025 8:04 PM SEARCH ENGINE OPTIMIZATION STRATEGIST us Dawna Snider NP MICROBIOLOGY - GENERAL ORDERABLE S Final Result [facility] [address] [place] [address], [phone] * (ABNORMAL) URINALYSIS (07/28/2025 12:50 PM SEARCH ENGINE OPTIMIZATION STRATEGIST) COLOR (U) LIGHT YELLOW 07/28/2025 1:23 PM SEARCH ENGINE OPTIMIZATION STRATEGIST [facility] TRANSPARENCY CLEAR 07/28/2025 1:23 PM [facility] SPECIFIC GRAVITY (U) 1.025 1.002 - 1.035 07/28/2025 1:23 PM SEARCH ENGINE OPTIMIZATION STRATEGIST [facility] U PH 6.5 5 - 8 07/28/2025 1:23 PM [facility] PROTEIN RANDOM (U) 10(A) NEGATIVE 07/28/2025 1:23 PM SEARCH ENGINE OPTIMIZATION STRATEGIST [facility] GLUCOSE (U) NEGATIVE NEGATIVE MG/DL 07/28/2025 1:23 PM [facility] KETONES MG/DL (U) NEGATIVE NEGATIVE 07/28/2025 1:23 PM SEARCH ENGINE OPTIMIZATION STRATEGIST [facility] BILIRUBIN (U) NEGATIVE NEGATIVE 07/28/2025 1:23 PM SEARCH ENGINE OPTIMIZATION STRATEGIST [facility] BLOOD (U) NEGATIVE NEGATIVE 07/28/2025 1:23 PM [facility] NITRITES NEGATIVE NEGATIVE 07/28/2025 1:23 PM [facility] UROBILINOGEN NORMAL 0 - 1 EU/DL 07/28/2025 1:23 PM [facility] LEUKOCYTES (U) NEGATIVE NEGATIVE 07/28/2025 1:23 PM SEARCH ENGINE OPTIMIZATION STRATEGIST [facility] RBC/HPF 2 0 - 3 /HPF 07/28/2025 1:23 PM SEARCH ENGINE OPTIMIZATION STRATEGIST [facility] WBC/HPF 1 0 - 6 /HPF 07/28/2025 1:23 PM SEARCH ENGINE OPTIMIZATION STRATEGIST [facility] BACTERIA (U) NONE /HPF 07/28/2025 1:23 PM SEARCH ENGINE OPTIMIZATION STRATEGIST [facility] SQUAMOUS EPITHELIALS <1 07/28/2025 1:23 PM SEARCH ENGINE OPTIMIZATION STRATEGIST [facility] NON SQUAMOUS EPITHELIAL <1 /HPF 07/28/2025 1:23 PM SEARCH ENGINE OPTIMIZATION STRATEGIST [facility] URINE URINE SPECIMEN OBTAINED BY CLEAN CATCH PROCEDURE / Unknown 07/28/2025 12:50 PM SEARCH ENGINE OPTIMIZATION STRATEGIST us Neri Higgins MD URINE ORDERABLES Final Result Performing Organization Address City/State/[facility] Co de Phone Number [facility] [address] [place] [address], [phone] * USE ECHOCARDIOGRAM (07/27/2025 12:01 PM SEARCH ENGINE OPTIMIZATION STRATEGIST) Anatomical Region Laterality Modality Cardiac Echocardiogram 07/27/2025 11:2 9 AM SEARCH ENGINE OPTIMIZATION STRATEGIST Narrative 07/27/2025 2:33 PM SEARCH ENGINE OPTIMIZATION STRATEGIST Echocardiography Report Pat.Name: JOSE JOSÉ MIGUEL Pat.ID: [id number] .Date: 07/27/2025 Refer.: [id number] SAVANNAH Lovett EWDPROV EWDPROV Exam Time: 11:29:00 AM Study Type:ECHO WITH CARDIAC DOPPLER COMP Height: 68 in Weight: 170 lb BSA: 1.91 m2 Age: 2 1965,59Y Sex: M BP: 109/72 HR: 66 bpm Sonogrphr: Andrea Rios RDCS Pat. Stat.:Inpatient Room: [place] [address] CPT - 4: 49648 Procedures: 2D, M-mode, Doppler, Color Flow, Strain Imaging ++++++++++++++++++++++++++++++++++++ SUMMARY: ++++++++++++++++++++++++++++++++++++ The left ventricular size is normal. The left ventricular systolic function is normal. The calculated ejection fraction is 61%. Wall motion appears normal in all segments. Right ventricular systolic function is mildly depressed. The left atrial volume is normal ( less than 34 ml/M2). The aortic valve is trileaflet. No evidence of aortic valve stenosis. Moderate aortic regurgitation. Structurally normal mitral valve. Trace to mild mitral regurgitation. Mildly calcified posterior mitral annulus. Mild tricuspid regurgitation. ++++++++++++++++++++++++++++++++++++ FINDINGS: ++++++++++++++++++++++++++++++++++++ LV: The left ventricular size is normal. The left ventricular systolic function is normal. The calculated ejection fraction is 61%. Estimated left ventricular ejection fraction is 60-65%. Mild concentric left ventricular hypertrophy. The septal E/e' is indeterminate at 8-15. The lateral E/e' is elevated at >11. The average E/e' is indeterminate at 9-12 and EF is > or equal to 50. Left ventricular diastolic function is normal. WM: Wall motion appears normal in all segments. RV: The right ventricular size is normal. Right ventricular systolic function is mildly depressed. Fractional area change (FAC) is calculated at 29%. (Normal value is 35% and above) LA: The left atrial volume is normal ( less than 34 ml/M2). RA: Right atrial size is small. KALPANA: No evidence of pericardial effusion. PA: Pulmonary artery is normal. The peak pulmonary artery systolic pressure is estimated to be approximately 24 mmHg. No evidence of pulmonary hypertension. Estimated right atrial pressure of 3 mmHg. SVn: Inferior vena cava shows >50% collapse with respiration consistent with normal right atrial pressure. Other: Technically difficult exam due to patient position. AV: The aortic valve is trileaflet. No evidence of aortic valve stenosis. Moderate aortic regurgitation. Mild thickening of aortic valve leaflets. Mild calcification of aortic valve leaflets. MV: Structurally normal mitral valve. Trace to mild mitral regurgitation. No evidence of mitral stenosis. Mildly calcified posterior mitral annulus. Mild calcification of mitral valve leaflets. PV: Structurally normal pulmonic valve. No evidence of pulmonic valve stenosis. A trace of pulmonic regurgitation. Pulmonic valve not well visualized. TV: Structurally normal tricuspid valve. Mild tricuspid regurgitation. Right ventricular systolic pressure is 24 mmHg. No evidence of tricuspid valve stenosis. ++++++++++++++++++++++++++++++++++++ MEASUREMENTS: ++++++++++++++++++++++++++++++++++++ 2D Left Ventricle LVIDd 2.47 cm (3.6-5.2)* Relative Wall T 0.462 LVIDs 1.73 cm (2.3-3.9)* LVPW LVPWd 1.09 cm Ventricular Septum IVSd 1.1 cm Left Atrium LA a-p 3.5 cm (2.8-3.4)+* Aorta Ao Rtd 3 cm (zsc 0.6) Ao Asc 3.7 cm (zsc 4.3)+* LVOT LVOT 2.04 cm Ratios IVS LA Biplane LAVol I BP 21.8 ml/m2 LV Left Ventricle Mass by M-mode LV Mass 188 g LV Strain Triplane LVEDV 108 ml LVESV 41.3 ml LVEDV 110 ml LVESV 42.1 ml LVEDV 113 ml Endo Peak Globa -13.6 % Volume Index (E 56.5 ml/m2 Endo Peak Globa -14.5 % Volume Index (E 21.7 ml/m2 Endo Peak Globa -13.4 % Volume Index (E 57.8 ml/m2 Endo Peak Globa -13.8 % Volume Index (E 21.6 ml/m2 SV 66.4 ml Volume Index (E 59 ml/m2 SV 69.1 ml Volume Index (E 22.1 ml/m2 SV 70.4 ml LVEF 61.6 % Mid Peak Global -11.9 % LVEF 62.6 % Mid Peak Global -12.2 % LVEF 62.6 % Mid Peak Global -11.6 % LVESV 41.4 ml Mid Peak Global -11.9 % Right Atrium Right Atrium Sy 6.75 cm2/m2 Minor [place] 4 cm Major [place] 4.7 cm Right Ventricle Right Ventricul 21.6 cm2 Right Ventricul 29.2 % Right Ventricul 8.01 cm2/m2 MMODE TA Tricuspid Annul 2.02 cm DOPPLER LVOT LVOTpkPG 6.3 mmHg LVOTmnPG 3.1 mmHg LVOTpkVel 125 cm/s (70-110)+* LVOT SV 84 ml LVOT TVI 25.7 cm AV Forward Flow AV TVI 29.5 cm AV pkPG 9 mmHg AV pkVel 151 cm/s (100-170)+ Area (TVI) 2.85 cm2 (3-5)* AV mnVel 98.8 cm/s Area (Tod) 2.71 cm2 (3-5)* AV mnPG 4.7 mmHg AV Regurg Flow AV pkVel 308 cm/s AV P1/2t 650 msec AV pkPG 37.9 mmHg MV Forward Flow MV DeTm 209 msec MV pkPG 3 mmHg MVA P1/2t 4.23 cm2 (4-6) MV E/A 0.8 MV P1/2t 52 msec (30-60)+ MV pkE 69.7 cm/s (60-130) MV mnPG 1 mmHg MV pkA 82.8 cm/s PV Forward Flow PV TVI 19.1 cm PV mnVel 56.1 cm/s PV pkVel 80.9 cm/s (60-90)+ PV mnPG 2 mmHg PV pkPG 3 mmHg TV Regurg Flow TV pkPG 21 mmHg TV pkVel 230 cm/s (30-70)+* Lat E' Lat e 5.44 cm/s Lat E/E' Lat E/e 12.8 Med E' Med e 5.87 cm/s Med E/E' Med E/e 11.9 Aortic Valve Aortic Valve Ar 1.49 Aortic Valve Ve 0.83 AV DI Value 0.9 IRWIN (VTI) Index Value 1.49 AV Regurgitant Flow Decel Time 499 ms Left Ventricle Ratio of MV Pea 12.3 Mean Myocardial 5.66 cm/s LV Mass 2D Value 188 g LV Mass [id number] Value 98.4 g/m2 RA Volume Atrial Cruz 4.81 cm Atrial Cruz 13 cm2 Atrial Cruz 29.4 ml <Electronic Signature> 07/27/2025 02:33 PM Leyla De Jesus M.D. Procedure Note Leyla De Jesus MD - 07/27/2025 Echocardiography Report Pat.Name: JOSÉ MIGUEL GARCIA JR Pat.ID: [id number] .Date: 07/27/2025 Katrin.: [id number] SAVANNAH Lovett EWDPROV EWDPROV Exam Time: 11:29:00 AM Study Type:ECHO WITH CARDIAC DOPPLER COMP Height: 68 in Weight: 170 lb BSA: 1.91 m2 Age: 2 1965,59Y Sex: M BP: 109/72 HR: 66 bpm Sonogrphr: Andrea Rios [facility] Pat. Stat.:Inpatient Room: [place] [address] CPT - 4: 47326 Procedures: 2D, M-mode, Doppler, Color Flow, Strain Imaging ++++++++++++++++++++++++++++++++++++ SUMMARY: ++++++++++++++++++++++++++++++++++++ The left ventricular size is normal. The left ventricular systolic function is normal. The calculated ejection fraction is 61%. Wall motion appears normal in all segments. Right ventricular systolic function is mildly depressed. The left atrial volume is normal ( less than 34 ml/M2). The aortic valve is trileaflet. No evidence of aortic valve stenosis. Moderate aortic regurgitation. Structurally normal mitral valve. Trace to mild mitral regurgitation. Mildly calcified posterior mitral annulus. Mild tricuspid regurgitation. ++++++++++++++++++++++++++++++++++++ FINDINGS: ++++++++++++++++++++++++++++++++++++ LV: The left ventricular size is normal. The left ventricular systolic function is normal. The calculated ejection fraction is 61%. Estimated left ventricular ejection fraction is 60-65%. Mild concentric left ventricular hypertrophy. The septal E/e' is indeterminate at 8-15. The lateral E/e' is elevated at >11. The average E/e' is indeterminate at 9-12 and EF is > or equal to 50. Left ventricular diastolic function is normal. WM: Wall motion appears normal in all segments. RV: The right ventricular size is normal. Right ventricular systolic function is mildly depressed. Fractional area change (FAC) is calculated at 29%. (Normal value is 35% and above) LA: The left atrial volume is normal ( less than 34 ml/M2). RA: Right atrial size is small. KALPANA: No evidence of pericardial effusion. PA: Pulmonary artery is normal. The peak pulmonary artery systolic pressure is estimated to be approximately 24 mmHg. No evidence of pulmonary hypertension. Estimated right atrial pressure of 3 mmHg. SVn: Inferior vena cava shows >50% collapse with respiration consistent with normal right atrial pressure. Other: Technically difficult exam due to patient position. AV: The aortic valve is trileaflet. No evidence of aortic valve stenosis. Moderate aortic regurgitation. Mild thickening of aortic valve leaflets. Mild calcification of aortic valve leaflets. MV: Structurally normal mitral valve. Trace to mild mitral regurgitation. No evidence of mitral stenosis. Mildly calcified posterior mitral annulus. Mild calcification of mitral valve leaflets. PV: Structurally normal pulmonic valve. No evidence of pulmonic valve stenosis. A trace of pulmonic regurgitation. Pulmonic valve not well visualized. TV: Structurally normal tricuspid valve. Mild tricuspid regurgitation. Right ventricular systolic pressure is 24 mmHg. No evidence of tricuspid valve stenosis. ++++++++++++++++++++++++++++++++++++ MEASUREMENTS: ++++++++++++++++++++++++++++++++++++ 2D Left Ventricle LVIDd 2.47 cm (3.6-5.2)* Relative Wall T 0.462 LVIDs 1.73 cm (2.3-3.9)* LVPW LVPWd 1.09 cm Ventricular Septum IVSd 1.1 cm Left Atrium LA a-p 3.5 cm (2.8-3.4)+* Aorta Ao Rtd 3 cm (zsc 0.6) Ao Asc 3.7 cm (zsc 4.3)+* LVOT LVOT 2.04 cm Ratios IVS LA Biplane LAVol I BP 21.8 ml/m2 LV Left Ventricle Mass by M-mode LV Mass 188 g LV Strain Triplane LVEDV 108 ml LVESV 41.3 ml LVEDV 110 ml LVESV 42.1 ml LVEDV 113 ml Endo Peak Globa -13.6 % Volume Index (E 56.5 ml/m2 Endo Peak Globa -14.5 % Volume Index (E 21.7 ml/m2 Endo Peak Globa -13.4 % Volume Index (E 57.8 ml/m2 Endo Peak Globa -13.8 % Volume Index (E 21.6 ml/m2 SV 66.4 ml Volume Index (E 59 ml/m2 SV 69.1 ml Volume Index (E 22.1 ml/m2 SV 70.4 ml LVEF 61.6 % Mid Peak Global -11.9 % LVEF 62.6 % Mid Peak Global -12.2 % LVEF 62.6 % Mid Peak Global -11.6 % LVESV 41.4 ml Mid Peak Global -11.9 % Right Atrium Right Atrium Sy 6.75 cm2/m2 Minor [place] 4 cm Major [place] 4.7 cm Right Ventricle Right Ventricul 21.6 cm2 Right Ventricul 29.2 % Right Ventricul 8.01 cm2/m2 MMODE TA Tricuspid Annul 2.02 cm DOPPLER LVOT LVOTpkPG 6.3 mmHg LVOTmnPG 3.1 mmHg LVOTpkVel 125 cm/s (70-110)+* LVOT SV 84 ml LVOT TVI 25.7 cm AV Forward Flow AV TVI 29.5 cm AV pkPG 9 mmHg AV pkVel 151 cm/s (100-170)+ Area (TVI) 2.85 cm2 (3-5)* AV mnVel 98.8 cm/s Area (Tod) 2.71 cm2 (3-5)* AV mnPG 4.7 mmHg AV Regurg Flow AV pkVel 308 cm/s AV P1/2t 650 msec AV pkPG 37.9 mmHg MV Forward Flow MV DeTm 209 msec MV pkPG 3 mmHg MVA P1/2t 4.23 cm2 (4-6) MV E/A 0.8 MV P1/2t 52 msec (30-60)+ MV pkE 69.7 cm/s (60-130) MV mnPG 1 mmHg MV pkA 82.8 cm/s PV Forward Flow PV TVI 19.1 cm PV mnVel 56.1 cm/s PV pkVel 80.9 cm/s (60-90)+ PV mnPG 2 mmHg PV pkPG 3 mmHg TV Regurg Flow TV pkPG 21 mmHg TV pkVel 230 cm/s (30-70)+* Lat E' Lat e 5.44 cm/s Lat E/E' Lat E/e 12.8 Med E' Med e 5.87 cm/s Med E/E' Med E/e 11.9 Aortic Valve Aortic Valve Ar 1.49 Aortic Valve Ve 0.83 AV DI Value 0.9 IRWIN (VTI) Index Value 1.49 AV Regurgitant Flow Decel Time 499 ms Left Ventricle Ratio of MV Pea 12.3 Mean Myocardial 5.66 cm/s LV Mass 2D Value 188 g LV Mass [id number] Value 98.4 g/m2 RA Volume Atrial Cruz 4.81 cm Atrial Cruz 13 cm2 Atrial Cruz 29.4 ml <Electronic Signature> 07/27/2025 02:33 PM Leyla De Jesus M.D. Neri Higgins MD ECHO Final Result * ECG 12 lead (07/27/2025 8:58 AM SEARCH ENGINE OPTIMIZATION STRATEGIST) ECG QT 427 [facility] ECG QTC 447 [facility] 07/27/2025 8:58 AM SEARCH ENGINE OPTIMIZATION STRATEGIST Narrative [facility] - 07/27/2025 2:17 PM SEARCH ENGINE OPTIMIZATION STRATEGIST [place] [address] [place] [address] Test Date: 2025-07-27 Pat Name: JOSÉ MIGUEL GARCIA Department: 1 Room: [place] [address] Gender: Male Computer Terminal Operator: Judy : 1965 Requested By: NERI HIGGINS Order Number: [id number] Ruma MD: Elvis Ferguson Measurements Intervals [place] Rate: 65 P: -14 IN: 146 QRS: 24 QRSD: 98 T: 89 QT: 427 QTc: 447 Interpretive Statements SINUS RHYTHM LEFT VENTRICULAR HYPERTROPHY AND ST-T CHANGE noise CH ENGINE OPTIMIZATION STRATEGIST Procedure Note Elvis Ferguson MD - 07/27/2025 [facility] [address] [place] [address] Test Date: 2025-07-27 Pat Name: JOSÉ MIGUEL GARCIA Department: 1 Room: [place] [address] Gender: Male Computer Terminal Operator: Judy : 1965 Requested By: NERI HIGGINS Order Number: [id number] Reading MD: Elvis Ferguson Measurements Intervals [place] Rate: 65 P: -14 IN: 146 QRS: 24 QRSD: 98 T: 89 QT: 427 QTc: 447 Interpretive Statements SINUS RHYTHM LEFT VENTRICULAR HYPERTROPHY AND ST-T CHANGE noise CH ENGINE OPTIMIZATION STRATEGIST us Neri Higgins MD ECG ORDERABLES Final Result [facility] * (ABNORMAL) POCT ACUTE VENOUS PANEL (07/27/2025 8:28 AM SEARCH ENGINE OPTIMIZATION STRATEGIST) SODIUM WHOLE BLOOD 141 138 - 146 mmol/L 07/27/2025 9:05 AM SEARCH ENGINE OPTIMIZATION STRATEGIST [facility] POTASSIUM WHOLE BLOOD 4.5 3.5 - 4.9 mmol/L 07/27/2025 9:05 AM [facility] CA IONIZED WH BLOOD 1.22 1.12 - 1.32 mmol/L 07/27/2025 9:05 AM SEARCH ENGINE OPTIMIZATION STRATEGIST [facility] POC PH VENOUS 7.336 7.31 - 7.41 07/27/2025 9:05 AM SEARCH ENGINE OPTIMIZATION STRATEGIST [facility] POC PCO2 VENOUS 54.0(H) 41.0 - 51.0 MMHG 07/27/2025 9:05 AM SEARCH ENGINE OPTIMIZATION STRATEGIST [facility] POC PO2 VENOUS 37 25 - 40 MMHG 07/27/2025 9:05 AM [facility] POC HCO3 VENOUS 28.9(H) 23 - 28 MMOL/L 07/27/2025 9:05 AM [facility] POC TCO2 VENOUS 30(H) 24 - 29 MMOL/L 07/27/2025 9:05 AM SEARCH ENGINE OPTIMIZATION STRATEGIST [facility] POC BASE EXCESS VENOUS 3 0 - 3 MMOL/L 07/27/2025 9:05 AM SEARCH ENGINE OPTIMIZATION STRATEGIST [facility] POC HEMATOCRIT 40 38 - 51 % 07/27/2025 9:05 AM SEARCH ENGINE OPTIMIZATION STRATEGIST [facility] TIME TEST WAS PERFORMED: 828 07/27/2025 9:05 AM SEARCH ENGINE OPTIMIZATION STRATEGIST [facility] 07/27/2025 8:28 AM SEARCH ENGINE OPTIMIZATION STRATEGIST Rolo Beltran MD POCT ORDERABLES - DEVICE Final Result Performing Organization Address [facility]/ZIP Co de Phone Number [facility] [address] [place] [id number], [phone] * TROPONIN, QUANT (07/27/2025 8:25 AM SEARCH ENGINE OPTIMIZATION STRATEGIST) TROPONIN I HIGH SENSITIVITY 18 0 - 78 ng/L 07/27/2025 9:14 AM SEARCH ENGINE OPTIMIZATION STRATEGIST [facility] BLOOD VENOUS BLOOD SPECIMEN / Unknown 07/27/2025 8:25 AM SEARCH ENGINE OPTIMIZATION STRATEGIST Neri Higgins MD LABORATORY Final Result Performing Organization Address [facility] Co de Phone Number [facility] [address] [place] [address], [place] [phone] * (ABNORMAL) THYROID STIM HORMONE TSH (07/27/2025 8:25 AM SEARCH ENGINE OPTIMIZATION STRATEGIST) TSH 3.870(H) 0.358 - 3.740 uIU/ML 07/27/2025 9:14 AM SEARCH ENGINE OPTIMIZATION STRATEGIST [facility] Comment: ASSAY PERFORMED BY CHEMILUMINESCENCE METHODOLOGY USING [employer] [facility]. PATIENT RESULTS DETERMINED BY ASSAYS USING DIFFERENT MANUFACTURERS FOR METHODS MAY NOT BE COMPARABLE. BLOOD VENOUS BLOOD SPECIMEN / Unknown 07/27/2025 8:25 AM SEARCH ENGINE OPTIMIZATION STRATEGIST Neri Higgins MD LABORATORY Final Result Performing Organization Address [facility] Co de Phone Number [facility] [address] [place] [address], [place] [phone] * STAPH SCREENING BY PCR (07/27/2025 8:25 AM SEARCH ENGINE OPTIMIZATION STRATEGIST) MRSA BY PCR NASAL NOT DETECTED NOT DETECTED 07/27/2025 9:49 AM SEARCH ENGINE OPTIMIZATION STRATEGIST [facility] SWAB NASOPHARYNGEAL STRUCTURE / Unknown 07/27/2025 8:25 AM SEARCH ENGINE OPTIMIZATION STRATEGIST Neri Higgins MD MICROBIOLOGY - GENERAL ORDERAB LES Final Result Performing Organization Address [facility]/RUST de Phone Number [facility] [address] [place] [address], [place] [phone] * PROTIME/INR, VENOUS (07/27/2025 8:25 AM SEARCH ENGINE OPTIMIZATION STRATEGIST) PROTIME 10.7 9.4 - 12.5 SEC 07/27/2025 9:05 AM SEARCH ENGINE OPTIMIZATION STRATEGIST [facility] INR 0.9 0.8 - 1.1 07/27/2025 9:05 AM SEARCH ENGINE OPTIMIZATION STRATEGIST [facility] BLOOD VENOUS BLOOD SPECIMEN / Unknown 07/27/2025 8:25 AM SEARCH ENGINE OPTIMIZATION STRATEGIST Neri Higgins MD LABORATORY Final Result Performing Organization Address [facility] Co de Phone Number [facility] [address] [place] [address], [place] [phone] * LIPID PANEL (07/27/2025 8:25 AM SEARCH ENGINE OPTIMIZATION STRATEGIST) CHOLESTEROL 151 MG/DL 07/27/2025 9:14 AM SEARCH ENGINE OPTIMIZATION STRATEGIST [facility] Comment:DESIRABLE: <200 TRIGLYCERIDES 79 MG/DL 07/27/2025 9:14 AM SEARCH ENGINE OPTIMIZATION STRATEGIST [facility] Comment:<150 NORMAL HDL 55 >39 MG/DL 07/27/2025 9:14 AM SEARCH ENGINE OPTIMIZATION STRATEGIST [facility] LDL (CALCULATED) 80 MG/DL 07/27/20 9:14 AM [facility] Comment: <100 OPTIMAL CALCULATED USING THE FRIEDEWALD EQUATION VLDL CALCULATION 16 MG/DL 07/27/20 9:14 AM [facility] Comment:REFERENCE RANGE NOT ESTABLISHED CHOL/HDL RATIO 2.7 07/27/2025 9:14 AM [facility] Comment:REFERENCE RANGE NOT ESTABLISHED LDL/HDL 1.5 07/27/2025 9:14 AM [facility] Comment:REFERENCE RANGE NOT ESTABLISHED NON HDL CHOLESTEROL 96 MG/DL 07/27/2025 9:14 AM [facility] Comment:REFERENCE RANGE NOT ESTABLISHED BLOOD VENOUS BLOOD SPECIMEN / Unknown 07/27/2025 8:25 AM SEARCH ENGINE OPTIMIZATION STRATEGIST Neri Higgins MD LABORATORY Final Result Performing Organization Address City/[facility] Co de Phone Number [facility] [address] [place] [address], [phone] * Lactic Acid Single (07/27/2025 8:25 AM SEARCH ENGINE OPTIMIZATION STRATEGIST) LACTIC ACID VENOUS 1.1 0.4 - 2.0 MMOL/L 07/27/2025 8:57 AM SEARCH ENGINE OPTIMIZATION STRATEGIST [facility] BLOOD VENOUS BLOOD SPECIMEN / Unknown 07/27/2025 8:25 AM SEARCH ENGINE OPTIMIZATION STRATEGIST Neri Higgins MD LABORATORY Final Result Performing Organization Address City/[facility] Co de Phone Number [facility] [address] [place] [address], [phone] * HEMOGLOBIN, GLYCOSYLATED (07/27/2025 8:25 AM SEARCH ENGINE OPTIMIZATION STRATEGIST) HGB A1C 5.3 <5.7 % 07/27/2025 9:21 AM [facility] ESTIMATED AVG GLUCOSE 105 74 - 114 MG/DL 07/27/2025 9:21 AM [facility] BLOOD VENOUS BLOOD SPECIMEN / Unknown 07/27/2025 8:25 AM [facility] Neri Higgins MD LABORATORY Final Result [facility] [address] [place] [address], [phone] * (ABNORMAL) COMPREHENSIVE METABOLIC PANEL (07/27/2025 8:25 AM [facility]) SODIUM S/P/B 141 136 - 145 MMOL/L 07/27/2025 9:14 AM [facility] POTASSIUM S/P/B 4.3 3.5 - 5.1 MMOL/L 07/27/2025 9:14 AM [facility] CHLORIDE S/P/B 111 97 - 115 MMOL/L 07/27/2025 9:14 AM [facility] CO2 28.1 21.0 - 32.0 MMOL/L 07/27/2025 9:14 AM [facility] GLUCOSE 115(H) 74 - 106 MG/DL 07/27/2025 9:14 AM [facility] BUN 16 7 - 18 MG/DL 07/27/2025 9:14 AM [facility] CREATININE S/P/B 1.50(H) 0.70 - 1.30 MG/DL 07/27/2025 9:14 AM [facility] CALCIUM S/P/B 8.2(L) 8.5 - 10.1 MG/DL 07/27/2025 9:14 AM [facility] BILIRUBIN TOTAL S/P/B 0.5 0.2 - 1.0 MG/DL 07/27/2025 9:14 AM [facility] ALKALINE PHOSPHATASE S/P/B 110 45 - 115 U/L 07/27/2025 9:14 AM [facility] AST 19 15 - 37 U/L 07/27/2025 9:14 AM [facility] ALT 19 16 - 61 U/L 07/27/2025 9:14 AM [facility] TOTAL PROTEIN S/P/B 6.0(L) 6.4 - 8.2 G/DL 07/27/2025 9:14 AM [facility] ALBUMIN S/P/B 2.9(L) 3.4 - 5.0 G/DL 07/27/2025 9:14 AM [facility] ANION GAP 1.9(L) 2.0 - 10.0 MMOL/L 07/27/2025 9:14 AM [facility] OSMOLALITY (CALC) 294 MOSM/KG 025 9:14 AM [facility] Comment:REFERENCE RANGE NOT ESTABLISHED GFR ESTIMATE 54(L) >90 ML/MIN/1. 73 M2 07/27/2025 9:14 AM [facility] GFR NOTES GFR REFERENCE S: 07/27/2025 9:14 AM [facility] Comment: THE ESTIMATED GFR IS CALCULATED USING THE 2020 CKD-EPI EQUATION. THE FOLLOWING CATEGORIES FOR GRADING RENAL FUNCTION ARE RECOMMENDED BY THE INTERNATIONAL SOCIETY OF NEPHROLOGY (KDIGO 2012 CLINICAL PRACTICE GUIDELINE). G1,NORMAL OR HIGH: >89 ml/min/1.73 m2 G2,MILDLY DECREASED: 60-89 ml/min/1.73 m2 G3A,MILDLY TO MODERATELY DECREASED: 45-59 ml/min/1.73 m2 G3B,MODERATELY TO SEVERELY DECREASED: 30-44 ml/min/1.73 m2 G4,SEVERELY DECREASED: 15-29 ml/min/1.73 m2 G5,KIDNEY FAILURE: <15 ml/min/1.73 m2 BLOOD VENOUS BLOOD SPECIMEN / Unknown 07/27/2025 8:25 AM SEARCH ENGINE OPTIMIZATION STRATEGIST us Neri Anunobi MD LABORATORY Final Result [facility] [address] [place] [address], [id number] * (ABNORMAL) CBC W/DIFF (07/27/2025 8:25 AM SEARCH ENGINE OPTIMIZATION STRATEGIST) WBC 8.93 4.00 - 10.80 x10'3/uL 07/27/2025 8:39 AM [facility] RBC 4.13(L) 4.50 - 6.10 x10'6/uL 07/27/2025 8:39 AM [facility] HGB 13.2 13.0 - 18.0 G/DL 07/27/2025 8:39 AM [facility] HCT 39.0 37.0 - 52.0 % 07/27/2025 8:39 AM [facility] MCV 94.4 78.0 - 100.0 FL 07/27/2025 8:39 AM [facility] MCH 32.0(H) 27.0 - 31.0 PG 07/27/2025 8:39 AM [facility] MCHC 33.8 33.0 - 36.0 G/DL 07/27/2025 8:39 AM [facility] RDW 13.5 11.5 - 14.5 % 07/27/2025 8:39 AM [facility] PLT 178 150 - 350 x10'3/uL 07/27/2025 8:39 AM [facility] MPV 10.4 7.4 - 10.4 FL 07/27/2025 8:39 AM [facility] DIFFERENTIAL TYPE AUTOMATED DIFFERENTIAL 07/27/2025 8:39 AM [facility] SEG NEUTROPHILS 62.5 % 8:39 AM [facility] LYMPHOCYTES 16.2 % 07/27/2025 8:39 AM SEARCH ENGINE OPTIMIZATION STRATEGIST [facility] MONOCYTES 14.1 % 07/27/2025 8:39 AM SEARCH ENGINE OPTIMIZATION STRATEGIST [facility] EOSINOPHILS 6.0 % 07/27/2025 8:39 AM [facility] BASOPHILS 1.0 % 07/27/2025 8:39 AM [facility] IMMATURE GRANS % 0.2 % 07/27/20 8:39 AM SEARCH ENGINE OPTIMIZATION STRATEGIST [facility] ABS. NEUTROPHILS 5.57 1.60 - 8.30 x10'3/uL 07/27/2025 8:39 AM SEARCH ENGINE OPTIMIZATION STRATEGIST [facility] ABS. LYMPHOCYTES 1.45 0.80 - 4.70 x10'3/uL 07/27/2025 8:39 AM [facility] ABS. MONOCYTES 1.26 0.00 - 1.50 x10'3/uL 07/27/2025 8:39 AM SEARCH ENGINE OPTIMIZATION STRATEGIST [facility] ABS. EOSINOPHILS 0.54(H) 0.00 - 0.40 x10'3/uL 07/27/2025 8:39 AM SEARCH ENGINE OPTIMIZATION STRATEGIST [facility] ABS. BASOPHILS 0.09 0.00 - 0.20 x10'3/uL 07/27/2025 8:39 AM [facility] ABS. IMMATURE GRANULOCYTES 0.02 0.00 - 0.03 x10'3/uL 07/27/2025 8:39 AM [facility] ABS. NUCLEATED RBC'S 0.00 0.00 - 0.01 x10'3/uL 07/27/2025 8:39 AM SEARCH ENGINE OPTIMIZATION STRATEGIST [facility] NRBC % 0.0 % 07/27/2025 8:39 AM [facility] BLOOD VENOUS BLOOD SPECIMEN / Unknown 07/27/2025 8:25 AM SEARCH ENGINE OPTIMIZATION STRATEGIST us Neri Higgins MD LABORATORY Final Result [facility] [address] [place] [address], [place] [phone] [id number] * (ABNORMAL) PRO-BRAIN NATRIURETIC PEPTIDE (07/27/2025 8:25 AM SEARCH ENGINE OPTIMIZATION STRATEGIST) PRO-B TYPE NATRIURETIC PEPTIDE 575(H) <125 PG/ML 07/27/2025 9:14 AM SEARCH ENGINE OPTIMIZATION STRATEGIST [facility] Comment: AGE INDEPENDENT: <300 PG/ML HAS A 99% NEGATIVE PREDICTIVE VALUE FOR EXCLUDING ACUTE CHF <50 YEARS: >450 PG/ML IS CONSISTENT WITH ACUTE CHF 50-75 YEARS: >900 PG/ML IS CONSISTENT WITH ACUTE CHF >75 YEARS: >1800 PG/ML IS CONSISTENT WITH ACUTE CHF IN PATIENTS WITH RENAL INSUFFICIENCY (GFR <60), >1200 PG/ML YIELDS A DIAGNOSTIC SENSITIVITY AND SPECIFICITY OF 89% AND 72% FOR ACUTE CHF. BLOOD VENOUS BLOOD SPECIMEN / Unknown 07/27/2025 8:25 AM SEARCH ENGINE OPTIMIZATION STRATEGIST Neri Higgins MD LABORATORY Final Result [facility] [address] [place] [address], [place] [phone] [id number] * XR CHEST PORTABLE (07/27/2025 8:22 AM SEARCH ENGINE OPTIMIZATION STRATEGIST) Anatomical Region Laterality Modality Chest Radiographic Madhuri ging 07/27/2025 9:05 AM SEARCH ENGINE OPTIMIZATION STRATEGIST Impressions 07/27/2025 9:05 AM SEARCH ENGINE OPTIMIZATION STRATEGIST IMPRESSION: Negative chest Ordered By: NERI HIGGINS Interpreted By: David Pace MD, 07/27/2025 9:05 AM Narrative 07/27/2025 9:05 AM SEARCH ENGINE OPTIMIZATION STRATEGIST [facility] [address] [place], [place] [address] SINGLE VIEW OF THE CHEST Clinical history: Chest pain Comparison: None A single view of the chest demonstrates the cardiac silhouette to be normal in size and appearance. The pulmonary vessels appear normal. The Lungs are clear. No consolidations or effusions are seen. Procedure Note David Pace MD - 07/27/[address] [address] SINGLE VIEW OF THE CHEST Clinical history: Chest pain Comparison: None A single view of the chest demonstrates the cardiac silhouette to benormal in size and appearance. The pulmonary vessels appear normal. TheLungs are clear. No consolidations or effusions are seen. IMPRESSION: Negative chest Ordered By: NERI HIGGINS Interpreted By: David Pace MD, 07/27/2025 9:05 AM Neri Higgins MD GENERAL IMAGING Final Result from Last 3 Months Insurance [employer] Advance Directives * Full Code (Latest Code Status on File) Date Activated Date Inactivated Comments 07/27/2025 7:57 AM 07/29/2025 1:47 PM Care Teams Crm Marketing Analyst Relationship Specialty Start Date End Date Michelle Lopez, JUDITH [address] [place] [address] PCP - General NURSE PRACTITIONER 07/28/25
== END 2025-08-21 15:53 | disposition home or self-care (01) ==
PROVIDERS: Visit Provider Nurse Practitioner Family
DX: N39.0 Urinary tract infection, site not specified (principal)
CPT/HCPCS: 81001; 87086; 87186